=== PATIENT | female | born 1945 ===

== ENCOUNTER 2020-01-24 11:20 | Emergency (ER) | payer MEDICARE, MEDICAID ==
--- NOTE | 2020-01-24 11:24 | ER Document Report ---
ED General - General Chief Complaint: Weakness Stated Complaint: WEAKNESS Time Seen by Provider: 01/24/20 11:23 Primary Care Provider: RICK LAWRENCE MD [ACTIVE STAFF] - Follow up as needed Mode of Arrival: Medic Information source: Patient TRAVEL OUTSIDE OF THE [place] IN LAST 30 DAYS: No - HPI Onset: Other - over the last 3-4 days Onset/Duration: Gradual Quality of pain: Other - off and on pressure in chest Severity: Moderate Pain Level: 2 Associated symptoms: Weakness, Other - Burning with urination Exacerbated by: Other - Exertion Relieved by: Remaining still Similar symptoms previously: No Recently seen / treated by doctor: Yes - Patient recently seen by her PCP (she finishe a course of Keflex for a UTI) Notes: 74 year old female with a history of HTN here for generalized weakness for the last 3-4 days. The patient says she was diagnosed and treated for a UTI with Keflex but she does not feel she has improved much at all. The patient still has some burning with urination and she feels very weak. Of note, the patient has also been having some chest pressure - Related Data Allergies/Adverse Reactions: ciprofloxacin [From Cipro] Allergy (Verified 01/24/20 11:36) Past Medical History - General Information source: Patient - Social History Smoking Status: Never Smoker Frequency of alcohol use: None Drug Abuse: None Family History: Reviewed & Not Pertinent Review of Systems - Review of Systems Constitutional: Weakness EENT: No symptoms reported Cardiovascular: Chest pain, Dizziness Respiratory: No symptoms reported Gastrointestinal: No symptoms reported Genitourinary: Dysuria Female Genitourinary: No symptoms reported Musculoskeletal: No symptoms reported Skin: No symptoms reported Hematologic/Lymphatic: No symptoms reported Neurological/Psychological: No symptoms reported -: Yes All other systems reviewed and negative Physical Exam - Vital signs Vitals: Resp 15 01/24/20 11:24 - Notes Notes: GENERAL: somewhat ill-appearing, well-nourished and in mild acute distress. HEAD: Atraumatic, normocephalic. EYES: Pupils equal round and reactive to light, extraocular movements intact, sclera anicteric, conjunctiva are normal. ENT: External ears normal in appearance, nares patent, oropharynx clear without exudates. Moist mucous membranes. NECK: Normal range of motion, supple without lymphadenopathy or JVD. LUNGS: Breath sounds clear to auscultation bilaterally and equal. No wheezes rales or rhonchi. HEART: Regular rate and rhythm without murmurs, rubs or gallops. ABDOMEN: Soft, nontender, normoactive bowel sounds. No guarding, no rebound. No masses appreciated. : uterine prolapse present RECTAL: Black stool, guiaic positive EXTREMITIES: Normal range of motion, no pitting or edema. No clubbing or cyanosis. NEUROLOGICAL: Cranial nerves II through XII grossly intact. Normal speech, normal gait. PSYCH: Normal mood, normal affect. SKIN: Warm, Dry, normal turgor, no rashes or lesions noted. Course - Re-evaluation Re-evalutation: 01/24/20 12:10 The patient came to the ER for generalized weakness and hypotension at an outpatient clinic. She recently had a UTI and was treated with Keflex but she does not feel like she improved much. The patient told nursing staff later in her ER stay that she also has been having off and on chest pains. EKG shows diffuse ST depressions but no ST elevations concerning for ACS. Patient took a baby aspirin in the morning. 01/24/20 12:49 The patient's labs hemolyzed. Still no Troponin resulted. Patient remains hypotensive. Will continue to fluid bolus but will consider pressors. Concern for septic shock (possibly from a UTI) vs cardiogenic shock from a primary cardiac event. 01/24/20 13:45 The patient remained hypotensive despite 3L of NS. The initial thought process was sepsis from a resistent UTI since patient still had urinary symptoms. I elected to place a central line for pressor support and the patient's hemoglobin came back at 4.5 and the Troponin came back at 3 while I was placing the central line. I immediately called for 2 units of Emergency Release Blood and instructed the nurses to pressure bag the blood. I spoke with the Dials Supervisor electronic sensing equipment assembler Dr. Trevino, the Bid Analyst electronic sensing equipment assembler Dr. Hinkle and the Surgeon electronic sensing equipment assembler and everyone agreed the most likely scenario is profound anemia causing the Trop elevation and EKG changes. Unfortunately there is no GI Doctor electronic sensing equipment assembler at [place] and no Surgeon electronic sensing equipment assembler who can perform endoscopies or colonoscopies so will seek transfer. Patient requested [facility]. 01/24/20 14:01 Patient has received 2 units of blood, 3L of NS, and she has Levophed going. Patient's BP has improved. UA looked infectious so Zosyn was given as well (patient had previously finished a course of Keflex as an outpatient so decided to use broad spectrum antibiotic). Blood and urine cultures pending. 01/24/20 14:12 [facility] accepted the patient to their ICU. - Vital Signs Vital signs: Temp Pulse Resp BP Pulse Ox 97 F L 85 21 H 93/47 L 100 01/24/20 14:00 01/24/20 13:31 01/24/20 14:01 01/24/20 14:01 01/24/20 14:01 - Laboratory Result Diagrams: 01/24/20 12:30 01/24/20 12:30 Laboratory results interpreted by me: 01/24/20 01/24/20 01/24/20 11:00 12:30 12:30 RBC 1.40 L Hgb 4.5 L* Hct 13.2 L* RDW 16.1 H Seg Neuts % (Manual) 85 H Lymphocytes % (Manual) 10 L APTT 23.0 L Sodium Potassium Chloride Carbon Dioxide BUN Est GFR ( Amer) Est GFR (MDRD) Non-Af Glucose Lactic Acid 2.7 H Calcium AST NT-Pro-B Natriuret Pep Total Protein Albumin Urine Protein Urine Blood Urine Nitrite Ur Leukocyte Esterase Crossmatch 01/24/20 01/24/20 01/24/20 12:30 12:30 13:30 RBC Hgb Hct RDW Seg Neuts % (Manual) Lymphocytes % (Manual) APTT Sodium 136.7 L Potassium 3.4 L Chloride 108 H Carbon Dioxide 21 L BUN 51 H Est GFR ( Amer) 53 L Est GFR (MDRD) Non-Af 44 L Glucose 131 H Lactic Acid Calcium 8.1 L AST 58 H NT-Pro-B Natriuret Pep 3360 H Total Protein 5.5 L Albumin 3.2 L Urine Protein Urine Blood Urine Nitrite Ur Leukocyte Esterase Crossmatch See Detail 01/24/20 13:30 RBC Hgb Hct RDW Seg Neuts % (Manual) Lymphocytes % (Manual) APTT Sodium Potassium Chloride Carbon Dioxide BUN Est GFR ( Amer) Est GFR (MDRD) Non-Af Glucose Lactic Acid Calcium AST NT-Pro-B Natriuret Pep Total Protein Albumin Urine Protein 100 H Urine Blood SMALL H Urine Nitrite POSITIVE H Ur Leukocyte Esterase LARGE H Crossmatch - Diagnostic Test Radiology reviewed: Image reviewed, Reports reviewed - EKG Interpretation by Me EKG shows normal: Sinus rhythm, [place], Intervals Rate: Normal Rhythm: NSR When compared to previous EKG there are: Previous EKG unavailable Additional EKG results interpreted by me: 01/24/20 12:40 ST Depressions in II, aVF, V3-V6 Procedures - Central Line Left Internal jugular Consent obtained: Yes Central line pre-insertion: Sterile PPE donned, Chloraprep applied Central line lumen type: Triple Anesthetic type: 1% Lidocaine mL's of anesthesia: 5 Ultrasound guided: Yes Line secured with sutures: Yes Central line post-insertion: Blood return from lumens, Biopatch applied, Sutured, Sterile dressing applied, Position confirmed w/ CXR Number of attempts: 1 Complications: No Critical Care Note - Critical Care Note Total time excluding time spent on procedures (mins): 75 Discharge - Discharge Clinical Impression: NSTEMI (non-ST elevated myocardial infarction) Anemia Qualifiers: Anemia type: unspecified type Qualified Code(s): D64.9 - Anemia, unspecified GI bleed Qualifiers: GI bleed type/associated pathology: unspecified gastrointestinal hemorrhage type Qualified Code(s): K92.2 - Gastrointestinal hemorrhage, unspecified Hypotension Qualifiers: Hypotension type: unspecified hypotension type Qualified Code(s): I95.9 - Hypo tension, unspecified Condition: Critical Disposition: [facility] Admitting Provider: Dr. Bettencourt Unit Admitted: ICU Referrals: RICK LAWRENCE MD [ACTIVE STAFF] - Follow up as needed
[2020-01-24] MEDS ORDERED: NORMAL SALINE 1000 ML 1,000 ML IV ONE (11:41)
[2020-01-24 12:10] LABS: INTERNATIONAL RATION (INR) 1.13; PROTHROMBIN TIME 14.6 SEC (11.4-15.4)
--- NOTE | 2020-01-24 12:12 | EKG REPORT ---
SEVERITY:- ABNORMAL ECG - SINUS RHYTHM 84 REPOL ABNRM SUGGESTS ISCHEMIA, DIFFUSE LEADS , SUSPECT CRITICAL CAD LESION : Confirmed by: Ander Means MD 24-Jan-2020 12:12:23
[2020-01-24] MEDS ORDERED: ASPIRIN 81 MG TABLET, CHEWABLE PO ONE (12:39)
[2020-01-24] MEDS ORDERED: ONDANSETRON HCL INJ/PF 4 MG/2 ML SDV IV ONE (12:42)
[2020-01-24] MEDS ORDERED: NOREPINEPHRINE BITARTRATE INJ/PF 4 MG/4 ML SDV IV ONE (12:54)
[2020-01-24] MEDS ORDERED: HEPARIN SODIUM,PORCINE/D5W 25,000 UNIT/250 ML RTUINJ IV PRN (12:55)
[2020-01-24] MEDS ORDERED: HEPARIN SOD (PORCINE) 1,000 UNIT/ML 10 ML VIAL IV ONE (12:55)
[2020-01-24] MEDS ORDERED: DEXTROSE 5%-WATER 250 ML with NOREPINEPHRINE BITARTRATE 4 MG IV PRN ×2 (12:56)
[2020-01-24 13:00] LABS: MEAN CORPUSCULAR HEMOGLOBIN 32.1 pg (27.0-33.4); MEAN CORPUSCULAR VOLUME 94 fl (80-97); PLATELET COUNT 226 10^3/uL (150-450); RED CELL DISTRIBUTION WIDTH 16.1 % (11.5-14.0); WHITE BLOOD COUNT 9.4 10^3/uL (4.0-10.5)
--- NOTE | 2020-01-24 13:06 | RADIOLOGY REPORT (SQ) ---
EXAM DESCRIPTION: CHEST SINGLE VIEW IMAGES COMPLETED DATE/TIME: 01/24/2020 12:57 pm REASON FOR STUDY: chest pain COMPARISON: PA and lateral views of the chest from 06/09/2010. EXAM PARAMETERS: NUMBER OF VIEWS: One view. TECHNIQUE: An AP view of the chest was obtained. RADIATION DOSE: NA LIMITATIONS: None. FINDINGS: LUNGS AND PLEURA: No consolidation, pleural effusion or pneumothorax. MEDIASTINUM AND HILAR STRUCTURES: No mediastinal or hilar contour abnormality. HEART AND VASCULAR STRUCTURES: The cardiac silhouette and pulmonary vasculature are within normal mayes its. BONES: No acute findings. HARDWARE: None in the chest. OTHER: No other finding. IMPRESSION: No acute cardiopulmonary process. TECHNICAL DOCUMENTATION: JOB ID: [id number] 2010 [employer]- All Rights Reserved Reading location - IP/workstation name: [email or web address]
[2020-01-24 13:12] LABS: ALBUMIN 3.2 g/dL (3.5-5.0); ALKALINE PHOSPHATASE 41 U/L (38-126); ANION GAP 8 (5-19); ASPARTATE AMINO TRANSFERASE 58 U/L (14-36); BILIRUBIN,TOTAL 0.4 mg/dL (0.2-1.3); BLOOD UREA NITROGEN 51 mg/dL (7-20); CALCIUM 8.1 mg/dL (8.4-10.2); CARBON DIOXIDE 21 mmol/L (22-30); CHLORIDE 108 mmol/L (98-107); GLUCOSE 131 mg/dL (75-110); POTASSIUM 3.4 mmol/L (3.6-5.0); TOTAL PROTEIN 5.5 g/dL (6.3-8.2)
[2020-01-24] MEDS ORDERED: METOCLOPRAMIDE HCL INJ/PF 10 MG/2 ML SDV ONE (13:15)
[2020-01-24 13:33] LABS: TROPONIN I 3.6 ng/mL
[2020-01-24 13:40] LABS: HEMATOCRIT 13.2 % (36.0-47.0)
[2020-01-24] MEDS ORDERED: PIPERACILLIN/TAZOBACTAM 3.375 GM VIAL IV ONE (13:41)
[2020-01-24 13:46] LABS: APPEARANCE,URINE CLOUDY; BILIRUBIN,URINE NEGATIVE (NEGATIVE); COLOR,URINE YELLOW; GLUCOSE, URINE NEGATIVE (NEGATIVE); KETONES,URINE NEGATIVE (NEGATIVE); LEUKOCYTE ESTERASE,URINE LARGE (NEGATIVE); NITRITE,URINE POSITIVE (NEGATIVE); PROTEIN,URINE 100 mg/dL (NEGATIVE); TRIPLE PHOSPHATE CRYSTAL,URINE FEW /HPF; URIC ACID CRYSTALS,URINE FEW /HPF; URINE SPECIFIC GRAVITY 1.017; UROBILINOGEN,URINE NEGATIVE mg/dL (<2.0)
[2020-01-24 13:46] LABS: ABSOLUTE LYMPHOCYTES# (MANUAL) 0.9 10^3/uL (0.5-4.7); ABSOLUTE MONOCYTES # (MANUAL) 0.5 10^3/uL (0.1-1.4); BASOPHILS % (MANUAL) 0 % (0-2); EOSINOPHILS % (MANUAL) 0 % (0-6); LYMPHOCYTES % (MANUAL) 10 % (13-45); MONOCYTES % (MANUAL) 5 % (3-13); SEGMENTED NEUTROPHILS % (MAN) 85 % (42-78); TOTAL CELLS COUNTED 100
[2020-01-24 13:52] LABS: ANISOCYTOSIS 1+; OVALOCYTES SLIGHT; POLYCHROMASIA 1+; TOXIC GRANULATION SLIGHT
[2020-01-24 13:53] LABS: PLATELET COMMENT ADEQUATE; PLATELET LARGE PRESENT
[2020-01-24 13:56] LABS: HEMOGLOBIN 4.5 g/dL (12.0-15.5)
[2020-01-24] MEDS ORDERED: METOCLOPRAMIDE HCL INJ/PF 10 MG/2 ML SDV IV ONE (14:24)
[2020-01-24 14:50] VITALS: BP 92/40
--- NOTE | 2020-01-24 15:08 | RADIOLOGY REPORT (SQ) ---
EXAM DESCRIPTION: CHEST SINGLE VIEW IMAGES COMPLETED DATE/TIME: 01/24/2020 2:50 pm REASON FOR STUDY: central line placement COMPARISON: AP view of the chest from 01/24/2020 and 1247 hours. EXAM PARAMETERS: NUMBER OF VIEWS: One view. TECHNIQUE: An AP view of the chest was obtained. RADIATION DOSE: NA LIMITATIONS: None. FINDINGS: LUNGS AND PLEURA: Unchanged radiographic appearance of the lungs and pleura. MEDIASTINUM AND HILAR STRUCTURES: Stable mediastinal and hilar contours. HEART AND VASCULAR STRUCTURES: Stable cardiac silhouette. BONES: No acute findings. HARDWARE: The tip of the left IJ central venous catheter projects within the SVC. OTHER: No other finding. IMPRESSION: The tip of the left IJ central venous catheter projects within the SVC. There is no pos tprocedural pneumothorax. TECHNICAL DOCUMENTATION: JOB ID: [id number] 2010 [employer]- All Rights Reserved Reading location - IP/workstation name: [email or web address]
[2020-01-24] MEDS ORDERED: HEPARIN SOD (PORCINE) 1,000 UNIT/ML 10 ML VIAL IV PRN (15:55)
[2020-01-27 14:05] LABS: PATH REVIEW PATHOLOGIST REVIEWED
== END 2020-01-24 14:50 | disposition short-term general hospital (02) ==
LOC: ER 11:20
DX: I21.4 Non-ST elevation (NSTEMI) myocardial infarction (principal); D64.9 Anemia, unspecified; K92.2 Gastrointestinal hemorrhage, unspecified; I95.9 Hypotension, unspecified; R53.1 Weakness; R30.0 Dysuria
CPT/HCPCS: 36556; 93005; 99291; 99292; 96361; 96375; 96365; 96366; 96368; 86900; 86901; 36415; 87040; 87086; 36430; 86850; 83605; 85025; 85610; 85730; 82270; 87088; 80053; 81001; 84484; 87186; 86920; 83880; 71045; 93010; P9016; J2765; J3490; J2405; J7060; J7030; J2543